=== PATIENT | female | born 1995 | race Caucasian/White ===

== ENCOUNTER 2024-12-11 14:16 | Outpatient (OUT) | payer OTHER, SELFPAY ==
--- NOTE | 2024-12-11 14:23 | ECG_ITS ---
[facility] Test Date: 2024-12-11 Pat Name: FRANKLIN BAUMAN Department: Room: - Gender: Female [employer]: : [id number] Requested By: KENDELL DUPONT Order Number: [id number] Sarah MD: MARCY ROWLEY M.D. Measurements Intervals [place] Rate: 67 P: 28 WV: 140 QRS: 48 QRSD: 110 T: 46 QT: 397 QTc: 421 Interpretive Statements SINUS RHYTHM Normal ECG No previous ECG available for comparison Electronically Signed On 12-11-2024 17:30:22 EDT by MARCY ROWLEY M.D.
--- NOTE | 2024-12-11 15:08 | P.GSHP_ITS ---
History of Present Illness History of Present Illness Chief complaint: Bladder Lesion Narrative: Presents for presurgical testing. The patient states that she has had abdominal pain since June 2024. She has a history of kidney stones so a CT abdomen and pelvis was ordered which demonstrated bladder lesions. She states she underwent a colonoscopy and EGD recently which showed gastritis. The patient takes indomethacin daily for headache control. The patient states her headache is worse today and she has light sensitivity. She is wearing sunglasses during the exam. She reports a history of hypertension, however when medicated she experienced hypotension and syncope. She has not been medicated for hypertension for at least 7 years. She states she had a cystoscopy done at Dr. Cortez office on December 03, 2024. She denies dysuria, hematuria, fever, nausea, vomiting, or any other complaints. Review of Systems ROS Narrative REVIEW OF SYSTEMS: Negative except as stated in HPI, ten or more systems reviewed. Constitutional: No fever, chills, weakness ENT: No sore throat or epistaxis Cardiovascular: No edema, chest pain, palpitations, or activity intolerance Respiratory: No shortness of breath, cough, or wheezing Musculoskeletal: No joint pain or swelling Gastrointestinal: No constipation, diarrhea, or vomiting Genitourinary: No dysuria or hematuria Neurological: No numbness, tingling, or weakness Psychiatric: No mood changes [facility] Medical History (Updated 12/11/24 @ 14:47 by Cely Schilling NP) Low iron ?E61.1 - Iron deficiency (ICD-10) Headache ?R51.9 - Headache, unspecified (ICD-10) Bladder tumor ?D49.4 - Neoplasm of unspecified behavior of bladder (ICD-10) Gastritis ?K29.70 - Gastritis, unspecified, without bleeding (ICD-10) Abdominal pain ?R10.9 - Unspecified abdominal pain (ICD-10) Hypertension ?I10 - Essential (primary) hypertension (ICD-10) Postoperative nausea and vomiting ?R11.2 - Nausea with vomiting, unspecified (ICD-10) ?Z98.890 - Other specified postprocedural states (ICD-10) Kidney stones ?N20.0 - Calculus of kidney (ICD-10) Surgical History (Updated 12/11/24 @ 14:47 by Cely Schilling NP) H/O ovarian cystectomy ?Z98.890 - Other specified postprocedural states (ICD-10) ?Z87.42 - Personal history of other diseases of the female genital tract (ICD-10) History of colonoscopy ?Z98.890 - Other specified postprocedural states (ICD-10) History of esophagogastroduodenoscopy (EGD) ?Z98.890 - Other specified postprocedural states (ICD-10) H/O adenoidectomy ?Z90.89 - Acquired absence of other organs (ICD-10) History of cholecystectomy ?Z90.49 - Acquired absence of other specified parts of digestive tract (ICD- 10) S/P ureteral stent placement ?Z96.0 - Presence of urogenital implants (ICD-10) S/P cystoscopy ?Z98.890 - Other specified postprocedural states (ICD-10) Family History (Updated 12/11/24 @ 14:47 by Cely Schilling NP) Other Congestive heart failure Family history of diabetes mellitus Family history of hypertension Family history of myocardial infarction Family history of renal failure Social History (Updated 12/11/24 @ 14:39 by Cely Schilling NP) Within the past year, how often did you have a drink containing alcohol: never Score interpretation: A score less than 3 is consistent with normal alcohol consumption. Smoking status: Never smoker Non-prescribed substance use: denies use Previous occupational history: Accounting/financial Highest level of school completed/degree received: Master's degree Meds Home Medications and Allergies Home Medications ?Medication ?Instructions ?Recorded ?Confirmed ?Type acetaminophen 325 mg tablet 650 mg PO Q6H PRN pain 12/11/24 12/11/24 History (Tylenol) ferrous sulfate 325 mg (65 mg 325 mg PO DAILY 12/11/24 12/11/24 History iron) tablet indomethacin 75 mg 75 mg PO DAILY 12/11/24 12/11/24 History capsule,extended release magnesium 200 mg tablet 200 mg PO DAILY 12/11/24 12/11/24 History omeprazole 40 mg capsule,delayed 40 mg PO DAILY 12/11/24 12/11/24 History release Allergies Allergy/AdvReac Type Severity Reaction Status Date / Time adhesive Allergy Rash Verified 12/11/24 14:34 Exam Narrative Exam Narrative: Constitutional: Awake, alert, nontoxic, interactive, vital signs as charted Head: Normocephalic, atraumatic Neck: Supple, normal appearance, normal range of motion, no meningeal signs, no lymphadenopathy Respiratory: No respiratory distress, breath sounds clear Cardiovascular: Regular rate and rhythm, strong and regular heart tones Abdomen: Nontender, normal bowel sounds, soft, no CVA tenderness Musculoskeletal: Normal gait, no swelling or edema Skin: No rashes or induration, no lesions, only visible skin inspected Neuro: No gross neurological deficits, normal sensation Psychiatric: Oriented ?3, normal affect Assessment and Plan Assessment and Plan (1) Bladder tumor: (2) Abdominal pain: Plan Cystoscopy, TURBT scheduled with Dr. Cortez December 19, 2024. Blood pressure in presurgical testing is 195/100 followed by 170/102 for recheck. The patient states her blood pressure does elevate when she experiences worsening headaches. EKG shows normal sinus rhythm. Blood pressures reported to Gayle at Dr. Cortez office.
[2024-12-11 15:15] LABS: Basophils Absolute Auto 0.1 10^3/uL (0.0-0.1); Basophils Percent Auto 0.6 % (0.2-2.0); Eosinophils Absolute Auto 0.1 10^3/uL (0.0-0.7); Eosinophils Percent Auto 0.6 % (0.9-7.0); Hematocrit 39.4 % (36.0-48.0); Immature Granulocytes Abs Auto 0.02 10^3/uL (0.00-0.03); Immature Granulocytes Pct Auto 0.2 % (0.0-0.5); Lymphocytes Absolute Auto 1.7 10^3/uL (1.2-3.8); Lymphocytes Percent Auto 17.9 % (20.5-60.0); Mean Corpuscular HGB Conc 30.5 g/dL (29.9-35.2); Mean Corpuscular Hemoglobin 25.9 pg (26.7-34.0); Mean Corpuscular Volume 85.1 fL (81.0-99.0); Mean Platelet Volume 9.2 fL (9.5-13.5); Monocytes Absolute Auto 0.4 10^3/uL (0.3-0.8); Monocytes Percent Auto 4.5 % (1.7-12.0); Neutrophils Percent Auto 76.2 % (43.0-75.0); Platelet Count 273 10^3/uL (150-450); Red Blood Count 4.63 10^6/uL (4.20-5.40); Red Cell Distribution Width 14.5 % (11.0-15.0); White Blood Count 9.2 10^3/uL (4.0-11.0)
[2024-12-11 15:24] LABS: INR 1.03; Partial Thromboplastin Time 28.6 sec (22.3-36.2); Prothrombin Time 10.9 sec (9.0-11.6)
[2024-12-11 15:28] LABS: Anion Gap 10.1; BUN Creatinine Ratio 17.6; Calcium 8.7 mg/dL (8.5-10.1); Carbon Dioxide 28.7 mmol/L (21.0-32.0); Chloride 101 mmol/L (98-107); Estimated GFR (African America >60 (>=60 mL/min/1.73m^2); Estimated GFR (Non-African Ame >60 (>=60 mL/min/1.73m^2); Glucose 93 mg/dL (74-106); Potassium 3.8 mmol/L (3.5-5.1); Sodium 136 mmol/L (136-145)
== END 2024-12-11 14:17 | disposition home or self-care (01) ==
LOC: PST 14:20
PROVIDERS: Family Provider Family Medicine; Visit Provider Urology
DX: Z01.810 Encounter for preprocedural cardiovascular examination (principal); Z01.812 Encounter for preprocedural laboratory examination; Z01.818 Encounter for other preprocedural examination; D49.4 Neoplasm of unspecified behavior of bladder; R31.9 Hematuria, unspecified
CPT/HCPCS: 80048; 85025; 85610; 85730; 93005; G0463